=== PATIENT | female | born 1960 | race American Indian/Alaskan Native ===

== ENCOUNTER 2016-12-14 00:45 | Emergency (ER) | payer OTHER ==
[2016-12-14 10:11] VITALS: BP 159/69
[2016-12-14] MEDS ORDERED: ANTIVERT PO ONE (10:18)
[2016-12-14] MEDS ORDERED: ZOFRAN ODT PO ONE (10:19)
[2016-12-14 10:38] LABS: Basophils % (Auto) 0.6 % (0.0-1.8); Eosinophils % (Auto) 0.6 % (0.0-4.3); Hematocrit 36.8 % (30.3-42.9); Hemoglobin 12.1 gm/dl (10.1-14.3); Mean Corpuscular HGB Conc 33 % (30-34); Mean Corpuscular Hemoglobin 28 pg (28-32); Mean Corpuscular Volume 86 fl (79-97); Platelet Count 186 K/mm3 (140-440); Red Blood Count 4.26 M/mm3 (3.65-5.03); Red Cell Distribution Width 13.8 % (13.2-15.2); White Blood Count 7.1 K/mm3 (4.5-11.0)
--- NOTE | 2016-12-14 10:50 | Cat Scan Report ---
CT HEAD WITHOUT CONTRAST: HISTORY: Headache, vertigo. Serial contiguous axial images were obtained through the cranium. Intravenous contrast material was not administered. The ventricles are normal in size and appearance. There is no mass effect or midline shift. No areas of abnormally increased or decreased attenuation are seen. No mass lesion is seen. The mastoid air cells and visualized portions of the sinuses are normal. IMPRESSION: Cranial CT scan within normal limits.
[2016-12-14 10:59] LABS: Anion Gap 17 mmol/L; BUN/Creatinine Ratio 28.33; Blood Urea Nitrogen 17 mg/dL (7-17); Calcium 9.6 mg/dL (8.4-10.2); Carbon Dioxide 26 mmol/L (22-30); Chloride 99.2 mmol/L (98-107); Glucose 100 mg/dL (65-100); Potassium 3.4 mmol/L (3.6-5.0); Sodium 139 mmol/L (137-145)
--- NOTE | 2016-12-14 11:33 | Emergency Department Report ---
HPI - General Chief Complaint: Headache Time Seen by Provider: 12/14/16 10:18 - HPI HPI: Chief complaint: Dizziness, nausea and headache HPI: Patient is a 56-year-old female with history of hypertension, hypothyroidism and a remote history of migraine headaches who states that for the last week she's had headaches off and on. She states her on the left side of her head and come and go. There are dull pain. Patient states they're better when she lays down and turns off a light. Vertigo is worse when her head moves or sometimes when she lays down. No upper respiratory infection symptoms no fever Mode of arrival: private car Source: Patient Began: See above Duration: Intermittent for the last 3 days Context: See above Quality: Dull Severity: 6 out of 10 Improved with: Laying down and turning off the lights Worsened with: See above Associated signs and symptoms: See above ED Past Medical Hx - Past Medical History Previous Medical History?: Yes Hx Hypertension: Yes (high cholesterol) Hx Sickle Cell Disease: Yes (trait) Hx Headaches / Migraines: Yes Additional medical history: Hypothyroid - Social History Smoking Status: Never Smoker Substance Use Type: None - Medications Home Medications: Home Medications Medication Instructions Recorded Confirmed Last Taken Type Ibuprofen 800 mg PO DAILY 11/02/16 12/14/16 1 Day Ago History Levothyroxine 100 mcg PO DAILY 11/02/16 12/14/16 1 Day Ago History Triamter/Hctz 37.5-25 mg 1 tab PO DAILY 11/02/16 12/14/16 1 Day Ago History Meclizine [Antivert] 25 mg PO TID PRN #14 tablet 12/14/16 Unknown Rx Ondansetron [Zofran Odt] 4 mg PO Q4H PRN #10 tab.rapdis 12/14/16 Unknown Rx ED Review of Systems ROS: Stated complaint: HEADACHE/DIZZINESS Other details as noted in HPI ROS Constitutional: No fever ENT: No uri symptoms Cardiovascular: No chest pain Respiratory: No sob or cough GI: No diarrhea : No dysuria frequency or urgency, Skin: No rash Neuro: No focal weakness or numbness Psych: No depression René/lymph: No edema Physical Exam - Physical Exam Vital Signs: Vital Signs 12/14/16 12/14/16 12/14/16 03:30 08:27 10:10 Temperature 97.7 F 98.3 F 97.9 F Pulse Rate 71 65 59 L Respiratory 18 16 18 Rate Blood Pressure 142/75 Blood Pressure 177/71 [Left] Blood Pressure 118/59 159/69 [Right] O2 Sat by Pulse 100 100 100 Oximetry Physical Exam: GENERAL: The patient is well-developed well-nourished . HEENT: Normocephalic. Atraumatic. Extraocular motions are intact. Patient has moist mucous membranes. Mild nystagmus on looking to the right NECK: Supple. No meningitic signs are noted. There is no adenopathy noted. CHEST/LUNGS: Clear to auscultation. There is no respiratory distress noted. HEART/CARDIOVASCULAR: Regular. There is no tachycardia. There is no gallop rub or murmur. ABDOMEN: Abdomen is soft, nontender. Patient has normal bowel sounds. There is no abdominal distention. SKIN: There is no rash. There is no edema. There is no diaphoresis. NEURO: The patient is awake, alert, and oriented. The patient is cooperative. The patient has no focal neurologic deficits. The patient has normal speech. MUSCULOSKELETAL: There is no tenderness or deformity. There is no limitation range of motion. There is no evidence of acute injury. ED Course Vital Signs 12/14/16 12/14/16 12/14/16 03:30 08:27 10:10 Temperature 97.7 F 98.3 F 97.9 F Pulse Rate 71 65 59 L Respiratory 18 16 18 Rate Blood Pressure 142/75 Blood Pressure 177/71 [Left] Blood Pressure 118/59 159/69 [Right] O2 Sat by Pulse 100 100 100 Oximetry - Reevaluation(s) Reevaluation #1: 12/14/16 11:44 Patient given Antivert and Zofran with improvement. ED Medical Decision Making - Lab Data Result diagrams: 12/14/16 10:29 12/14/16 10:29 - Radiology Data Radiology results: report reviewed (CT head within normal limits) Critical care attestation.: If time is entered above; I have spent that time in minutes in the direct care of this critically ill patient, excluding procedure time. ED Disposition Clinical Impression: Labyrinthitis Qualifiers: Laterality: unspecified laterality Qualified Code(s): H83.09 - Labyrinthitis, unspecified ear Disposition: DISCHARGED TO HOME OR SELFCARE Is pt being admited?: No Does the pt Need Aspirin: No Condition: Stable Instructions: Labyrinthitis (ED) Prescriptions: Meclizine [Antivert] 25 mg PO TID PRN #14 tablet PRN Reason: Vertigo Ondansetron [Zofran Odt] 4 mg PO Q4H PRN #10 tab.rapdis PRN Reason: Nausea And Vomiting Referrals: CICI ANDRADE MD [Primary Care Provider] - 3-5 Days Time of Disposition: 11:36
== END 2016-12-14 11:45 | disposition home or self-care (01) ==
LOC: ED 00:45
DX: H83.09 Labyrinthitis, unspecified ear (principal); I10 Essential (primary) hypertension; E78.00 Pure hypercholesterolemia, unspecified; G43.909 Migraine, unspecified, not intractable, without status migrainosus; D57.00 Hb-SS disease with crisis, unspecified; E03.9 Hypothyroidism, unspecified
CPT/HCPCS: 36415; 70450; 80048; 85025; Q0162